=== PATIENT | female | born 1995 | race American Indian/Alaskan Native ===

== ENCOUNTER 2017-10-15 12:18 | Outpatient (CLI) | payer MEDICAID ==
[2017-10-15 12:46] VITALS: BP 131/84
[2017-10-15 13:41] LABS: Bilirubin,Urine NEG (Negative); Blood,Urine NEG (Negative); Calcium Oxalate Crystals,Urine 1+; Color,Urine Yellow (Yellow); Mucus,Urine 3+ /HPF; Protein,Urine <15 mg/dL mg/dL (Negative); Urobilinogen,Urine < 2.0 mg/dL (<2.0)
[2017-10-15 13:48] LABS: Amphetamine Screen,Urine PRESUMPTIVE NEGATIVE; Benzodiazepines Screen,Urine PRESUMPTIVE NEGATIVE; Cannabinoid Screen,Urine PRESUMPTIVE NEGATIVE; Cocaine Screen,Urine PRESUMPTIVE NEGATIVE; Methadone Screen,Urine PRESUMPTIVE NEGATIVE; Opiate Screen,Urine PRESUMPTIVE NEGATIVE
--- NOTE | 2017-10-15 16:37 | Ultrasound Report ---
FINAL REPORT EXAM: US OB > = 14 WK FETUS ADD GEST HISTORY: WELL BEING, TWIN GESTATION TECHNIQUE: Transabdominal OB ultrasound. PRIORS: None currently available. FINDINGS: Twin intrauterine pregnancies. A: A dates 24.2 weeks. DEANA equals February 02, 2018. This is 7 days older compared to the clinical age and is within normal limits. EFW equals 679 g. Percentile equals 86%. BPD: 23.6 weeks. HC: 24.2 weeks. AC: 23.6 weeks. FL: 24.6 weeks. AC/HC ratio: 1.16 Cephalic index: 82.0 mm. Presentation: Cephalic. Placenta: Fundal, right lateral. Grade 1. No previa. heart rate: 146 BPM. Amniotic fluid: Largest vertical pocket equals 3.1 cm. Cervical length measures 3.7 cm. Visualized cord plexus, cisterna magnum, cerebellum, lateral ventricle, stomach, kidneys, bladder, diaphragm, four-chamber heart, and three-vessel cord insertion appear within normal limits. B: B dates 24.2 weeks. DEANA equals February 02, 2018. This is 7 days older compared to the clinical age and is within normal limits. EFW equals 72.6 g. percentile equals 96%. BPD: 23.5 weeks. HC: 23.6 weeks. AC: 24.6 weeks. FL: 24.6 weeks. AC/HC ratio: 1.08 Cephalic index: 76.2 mm. Presentation: Cephalic. Placenta: Fundal. Grade 1. No previa. heart rate: 138 BPM. Amniotic fluid: Largest vertical pocket equals 5.6 cm. Cervical length measures 3.7 cm. Visualized cord plexus, cisterna magnum, cerebellum, lateral ventricle, stomach, kidneys, bladder, diaphragm, four-chamber heart, three-vessel cord insertion, and spine appear within normal limits. IMPRESSION: Twin live intrauterine pregnancies. Twin B demonstrates a 96 percentile for weight. Please correlate for possible. Twin a demonstrates 86 percent for weight. Shane level II finding report initiated.
== END 2017-10-15 16:00 | disposition home or self-care (01) ==
LOC: TRG 12:18
PROVIDERS: ATTEND Obstetrics & Gynecology
DX: O30.002 Twin pregnancy, unspecified number of placenta and unspecified number of amniotic sacs, second trimester (principal); O47.02 False labor before 37 completed weeks of gestation, second trimester; Z3A.23 23 weeks gestation of pregnancy
CPT/HCPCS: 59025; 76805; 76810; 80307; 81001

== ENCOUNTER 2017-11-14 13:47 | Inpatient (IN) | payer MEDICAID ==
[2017-11-14] MEDS ORDERED: APRESOLINE IV PRN (14:03)
[2017-11-14] MEDS ORDERED: LACTATED RINGERS 1,000 ML IV SCH (15:00)
[2017-11-14 15:15] LABS: Hemoglobin 12.3 gm/dl (10.1-14.3); Mean Corpuscular HGB Conc 34 % (30-34); Mean Corpuscular Hemoglobin 31 pg (28-32); Mean Corpuscular Volume 91 fl (79-97); Platelet Count 280 K/mm3 (140-440); Red Blood Count 3.97 M/mm3 (3.65-5.03); Red Cell Distribution Width 12.5 % (13.2-15.2)
[2017-11-14 15:16] LABS: Bacteria,Urine 2+ /HPF (Negative); Bilirubin,Urine NEG (Negative); Blood,Urine NEG (Negative); Color,Urine Yellow (Yellow); Mucus,Urine 2+ /HPF; Protein,Urine <15 mg/dL mg/dL (Negative); Urobilinogen,Urine < 2.0 mg/dL (<2.0)
[2017-11-14 15:18] LABS: INR 0.95 (0.87-1.13)
[2017-11-14 15:19] LABS: Partial Thromboplastin Time 27.8 Sec. (24.2-36.6)
[2017-11-14 15:30] LABS: Alanine Aminotransferase 10 units/L (7-56); Albumin 3.3 g/dL (3.9-5); BUN/Creatinine Ratio 16; Blood Urea Nitrogen 8 mg/dL (7-17); Hemolysis Index 0
--- NOTE | 2017-11-14 15:33 | History and Physical Report ---
History of Present Illness Date of examination: 11/14/17 Date of admission: 11/14/17 13:47 Chief complaint: Elevated BP in clinic History of present illness: 21yo 27 4/7wks, twin gestation, transferred from clinic for BPs 140-150/ 110s, 1+Protein. She denies headache, visual changes or RUQ pain. She has had limited care with one visit this on 10/05/18 in [place]. She was seen 10/2017 at [facility] and at US was done. Past History Past Surgical History: no surgical history Family/Genetic History: hypertension Social history: lives with family, other (Mother - lives in [place], Father - lives in [place], Grandmother - lives in [place]. FOB, 23yo not involved.) - Obstetrical History : 1 Medications and Allergies Allergies Allergy/AdvReac Type Severity Reaction Status Date / Time No Known Allergies Allergy Unverified 10/15/17 12:38 Home Medications Medication Instructions Recorded Confirmed Last Taken Type Pnv No.95/Ferrous Fum/Folic AC 1 tab PO DAILY 10/15/17 10/15/17 10/15/17 History [ Vitamins Tablet] Active Meds: Active Medications Betamethasone Acet/Betameth SodPhos (Celestone Soluspan) 12 mg IM Q24H YASMIN Stop: 11/15/17 15:01 Hydralazine HCl (Apresoline) 5 mg IV Q30MIN PRN PRN Reason: HTN SYS>160 AND/OR MAHAD>110 Lactated Ringer's (Lactated Ringers) 1,000 mls @ 125 mls/hr IV DIRECT YASMIN - Physical Exam Cardiovascular: Regular rate Lungs: Positive: Clear to auscultation - Obstetrical FHR: auscultation normal Results Result Diagrams: 11/14/17 14:34 11/14/17 14:34 Abnormal lab results 11/14/17 11/14/17 11/14/17 Range/Units 14:34 14:34 14:34 RDW 12.5 L (13.2-15.2) % Carbon Dioxide 20 L (22-30) mmol/L Creatinine 0.5 L (0.7-1.2) mg/dL Glucose 111 H (65-100) mg/dL Total Protein 6.0 L (6.3-8.2) g/dL Albumin 3.3 L (3.9-5) g/dL Urine WBC (Auto) 7.0 H (0.0-6.0) /HPF U Epithel Cells (Auto) 35.0 H (0-13.0) /HPF All other labs normal. Assessment and Plan - Patient Problems (1) 27 weeks gestation of Current Visit: Yes Status: Acute Plan to address problem: 1. 1hr OGTT - 50g load brought from clinic, plan random glucose at 1845, 1hr from drinking glucola 2. RPR, HIV drawn (2) Twin gestation in second trimester Current Visit: Yes Status: Acute Qualifiers: Multiple gestation type: unspecified Qualified Code(s): O30.002 - Twin , unspecified number of placenta and unspecified number of amniotic sacs, second trimester Plan to address problem: 1. APA consult for twin gestation, elevated BP (3) Gestational hypertension Current Visit: Yes Status: Acute Plan to address problem: 1. PIH labs 2. 24hr urine for protein/Cr clearance 3. Monitor vitals Q15min 4. Hydralizine prn 5. BPP, UA dopplers 6. APA consult (4) Obesity Current Visit: Yes Status: Acute
[2017-11-14 15:42] LABS: Bilirubin,Direct < 0.2 mg/dL (0-0.2)
[2017-11-14 17:39] LABS: Amphetamine Screen,Urine PRESUMPTIVE NEGATIVE; Benzodiazepines Screen,Urine PRESUMPTIVE NEGATIVE; Cannabinoid Screen,Urine PRESUMPTIVE NEGATIVE; Cocaine Screen,Urine PRESUMPTIVE NEGATIVE; Methadone Screen,Urine PRESUMPTIVE NEGATIVE; Opiate Screen,Urine PRESUMPTIVE NEGATIVE
--- NOTE | 2017-11-14 17:51 | Ultrasound Report ---
FINAL REPORT PROCEDURE: US OB BPP EA ADD EXAM TECHNIQUE: Sonographic evaluation for breathing, movement, tone, and amniotic fluid volume was performed. CPT 97123 HISTORY: Preeclampsia. well being. COMPARISON: Ultrasound dated 10/15/2017. FINDINGS: Twin B Clinical age given 27 weeks 4 days. Amniotic fluid volume: Normal-score 2. At least one vertical pocket > 2 cm or more in vertical axis. Deepest pocket 3.70 cm. breathing: Normal-score 2. movement: Normal-score 2. tone: Normal. Score: 8 of 8. heart rate 135 5 beats per minute. position: Breech IMPRESSION: Normal biophysical profile.
--- NOTE | 2017-11-14 20:27 | Ultrasound Report ---
FINAL REPORT PROCEDURE: US OB FOLLOW UP TECHNIQUE: Real-time transabdominal sonography of the baby a was performed with image documentation. Measurements were obtained to determine weight. M-mode Doppler was used to document heartbeat. CPT 37198 HISTORY: efw COMPARISON: No prior studies are available for comparison. FINDINGS: Twin intrauterine gestation is identified. Baby A: Heart rate and rhythm: 143 beats per minute. MEASUREMENTS: BPD: 6.9 centimeters corresponding to 27 weeks and 5 days of gestational age HC: 25.9 centimeters corresponding to 28 weeks and 1 day of gestational age AC: 23.3 centimeters corresponding to 27 weeks and 4 days of gestational age. FL: 5.3 centimeters corresponding to 28 weeks and 2 days of gestational age. Mean Gestational Age (composite criteria): 02/06/2018 HC/AC ratio: 1.11 Estimated Weight: 1144 grams +/-169 grams grams. IMPRESSION: Twin live intrauterine gestation. Twin A gestational age corresponds to 28 weeks and 0 days. Estimated due date: 02/06/2018.
--- NOTE | 2017-11-14 20:33 | Ultrasound Report ---
FINAL REPORT PROCEDURE: US OB FOLLOWUP EA ADD GESTAT TECHNIQUE: Real-time transabdominal sonography of the uterus, placenta, amniotic fluid, adnexa, and fetus was performed with image documentation. Measurements were obtained to determine age/size. M-mode Doppler was used to document heartbeat. CPT 72772 HISTORY: efw COMPARISON: FINDINGS: Twin intrauterine gestation is identified. Largest pocket of amniotic fluid is 5.2 centimeters Baby B: Heart rate and rhythm: 128 beats per minute regular MEASUREMENTS: BPD: 6.6 centimeters corresponding to 26 weeks and 3 days of gestational age. HC: 26.0 centimeters corresponding to 28 weeks and 2 days of gestational age. AC: 23.2 centimeters corresponding to 27 weeks and 4 days of gestational age. FL: 5.3 centimeters corresponding to 28 weeks and 2 days of gestational age. Mean Gestational Age (composite criteria): 27 weeks and 5 days HC/AC ratio: 1.12 Estimated Weight: 1128 grams +/-167 grams grams. IMPRESSION: Twin live intrauterine gestation. Twin B gestational age corresponds to 27 weeks and 5 days. Estimated due date: 02/08/2018.
[2017-11-14] MEDS: CELESTONE SOLUSPAN IM SCH (22:11)
--- NOTE | 2017-11-14 23:42 | Ultrasound Report ---
FINAL REPORT PROCEDURE: US OB BPP WO NON-STRESS TECHNIQUE: Real-time limited sonographic examination was performed for evaluation of size, position, heartbeat, fluid volume for each fetus with image documentation (1 or more fetuses). CPT 41877 HISTORY: TWIN GESTATION ; PER REQUEST COMPARISON: No prior studies are available for comparison. FINDINGS: Biophysical profile: breathing movements: 2. movements: 2. posterior and tone: 2. Qualitative amniotic fluid volume: 2. Total score: 8/8. heart rate 155 beats per minute. presentation: Breech. IMPRESSION: Normal biophysical profile.
--- NOTE | 2017-11-14 23:48 | Ultrasound Report ---
FINAL REPORT PROCEDURE: US OB VELOCIMETRY UMBILCAL ART TECHNIQUE: Real-time limited sonographic examination was performed for evaluation of size, position, heartbeat, fluid volume for each fetus with image documentation (1 or more fetuses). CPT 81304 HISTORY: well being, chorionicity, BPP COMPARISON: No prior studies are available for comparison. FINDINGS: Umbilical cord SD ratio: 3.8. There is a persistent waveform. Resistive index is 0.7. IMPRESSION: Umbilical cord SD ratio: 3.8.
--- NOTE | 2017-11-14 23:48 | Ultrasound Report ---
FINAL REPORT PROCEDURE: US OB VELOCIMETRY UMBILCAL ART TECHNIQUE: Real-time limited sonographic examination was performed for evaluation of size, position, heartbeat, fluid volume for each fetus with image documentation (1 or more fetuses). CPT 87822 HISTORY: well being, chorionicity, BPP COMPARISON: No prior studies are available for comparison. FINDINGS: Umbilical cord SD ratio: 3.8. There is a persistent waveform. Resistive index is 0.7. IMPRESSION: Umbilical cord SD ratio: 3.8.
[2017-11-15] MEDS ORDERED: AMBIEN PO PRN (01:16)
--- NOTE | 2017-11-15 09:22 | Consultation ---
History of Present Illness Consult date: 11/15/17 Requesting physician: YA WAKEFIELD History of present illness: 21yo 27 5/7wks, DEANA 02/09/18 twin gestation, transferred from OB clinic for BPs 140-150/110s, 1+Protein. No Care due to Insurance but now has Insurance Denies CHARLES's [place] or RUQ Pain Denies H/O CHTN Seen Early in Preg in [facility] and [facility] Twins noted with DEANA of 02/09/18 BP's in L&D WNL highest 147/65 most 120-130/70's last 2 BP/s 130/84 and 99/60 PIH Labs Plts and Liver Functions WNL's UA Prot - < 15 and 24 Hour Urine Prot Pending this afternoon took 1 Hour GTT today prior to steroids for FLM BPP 8/8 on Both Twin A and B EFW's A 1144 grams 51% and B 1128 grams 46% EFM Twins A&B 120' 130's categ I No Med ds Denies Surg, C/D/D, STD, NKA no issue Abd - Obese NT No rebound no gaurding No RUQ Pain Ext - Tr edema DTR's no clonus Past History Past Surgical History: no surgical history Family/Genetic History: hypertension - Obstetrical History : 1 Medications and Allergies Allergies Allergy/AdvReac Type Severity Reaction Status Date / Time No Known Allergies Allergy Unverified 10/15/17 12:38 Home Medications Medication Instructions Recorded Confirmed Last Taken Type Pnv No.95/Ferrous Fum/Folic AC 1 tab PO DAILY 10/15/17 10/15/17 10/15/17 History [ Vitamins Tablet] Active Meds: Active Medications Betamethasone Acet/Betameth SodPhos (Celestone Soluspan) 12 mg IM Q24H YASMIN Stop: 11/15/17 15:01 Last Admin: 11/14/17 22:11 Dose: 12 mg Hydralazine HCl (Apresoline) 5 mg IV Q30MIN PRN PRN Reason: HTN SYS>160 AND/OR MAHAD>110 Lactated Ringer's (Lactated Ringers) 1,000 mls @ 125 mls/hr IV DIRECT YASMIN Zolpidem Tartrate (Ambien) 5 mg PO QHS PRN PRN Reason: Sleep - Vital Signs Vital signs: Vital Signs Temp Pulse Resp BP 98.1 F 93 H 16 124/80 11/14/17 14:35 11/14/17 14:35 11/14/17 14:35 11/14/17 14:35 Temp Pulse Resp BP Pulse Ox 98.1 F 83 16 99/60 11/14/17 14:35 11/14/17 18:12 11/14/17 15:00 11/14/17 18:12 Results Result Diagrams: 11/14/17 14:34 11/14/17 19:39 Abnormal lab results 11/14/17 11/14/17 11/14/17 Range/Units 14:34 14:34 14:34 RDW 12.5 L (13.2-15.2) % Carbon Dioxide 20 L (22-30) mmol/L Creatinine 0.5 L (0.7-1.2) mg/dL Glucose 111 H (65-100) mg/dL Total Protein 6.0 L (6.3-8.2) g/dL Albumin 3.3 L (3.9-5) g/dL Urine WBC (Auto) 7.0 H (0.0-6.0) /HPF U Epithel Cells (Auto) 35.0 H (0-13.0) /HPF Urine Creatinine (0.1-20.0) mg/dL Urine Total Protein (5-11.8) mg/dL 11/14/17 11/14/17 Range/Units 14:34 15:27 RDW (13.2-15.2) % Carbon Dioxide (22-30) mmol/L Creatinine (0.7-1.2) mg/dL Glucose (65-100) mg/dL Total Protein (6.3-8.2) g/dL Albumin (3.9-5) g/dL Urine WBC (Auto) (0.0-6.0) /HPF U Epithel Cells (Auto) (0-13.0) /HPF Urine Creatinine 155.2 H (0.1-20.0) mg/dL Urine Total Protein 34 H (5-11.8) mg/dL All other labs normal. Assessment and Plan 1. Twin IUP at 27 5/7 weeks 2. R/O Gest HTN - BP's now WNL's 3. Limited Care 4. Obesity Recommendations: 1. If BP's remain stable would allow discharge home with close OB and APA FU 2. Follow up with APA within one week 3. Confirm normal 1 Hour GTT 4. Call or go to Hosp for S/S of PIH or DFM's 5. Take BP's Twice Per week - Use large cuff 6. Obtain all labs (limited care)
--- NOTE | 2017-11-15 14:31 | Progress Note ---
Assessment and Plan - Patient Problems (1) 27 weeks gestation of Current Visit: Yes Status: Acute Plan to address problem: Stable. Plan discharge after second betamethasone. (2) Twin gestation in second trimester Current Visit: Yes Status: Acute Qualifiers: Multiple gestation type: unspecified Qualified Code(s): O30.002 - Twin , unspecified number of placenta and unspecified number of amniotic sacs, second trimester (3) Gestational hypertension Current Visit: Yes Status: Acute Plan to address problem: 1. BP's since admission - normotensive. 2. F/u in clinic 1 week for BP check 3, PIH to date negative. (4) Obesity Current Visit: Yes Status: Acute Subjective - Subjective Date of service: 11/15/17 Interval history: 21yo 27 4/7wks, twin gestation, transferred from clinic for BPs 140-150/ 110s, 1+Protein. She denies headache, visual changes or RUQ pain. She has had limited care with one visit this on 10/05/18 in [place]. She was seen 10/2017 at [facility] and at US was done. Patient reports: new complaints (Reports good movement of both twins) Objective - Vital Signs Vital Signs: Vital Signs - 12hr 11/15/17 09:41 Temperature 97.6 F Pulse Rate 104 H Blood Pressure 139/86 [Right] - Exam Uterus: Present: normal, fundal height above umbilicus FHR comments: NST reviewed Extremities: normal - Labs Labs: Abnormal Labs 11/14/17 11/14/17 11/14/17 14:34 14:34 14:34 RDW 12.5 L Carbon Dioxide 20 L Creatinine 0.5 L Glucose 111 H Total Protein 6.0 L Albumin 3.3 L Urine WBC (Auto) 7.0 H U Epithel Cells (Auto) 35.0 H Urine Creatinine Urine Total Protein 11/14/17 11/14/17 14:34 15:27 RDW Carbon Dioxide Creatinine Glucose Total Protein Albumin Urine WBC (Auto) U Epithel Cells (Auto) Urine Creatinine 155.2 H Urine Total Protein 34 H Laboratory Results - last 24 hr 11/14/17 11/14/17 11/14/17 14:34 14:34 14:34 WBC 7.9 RBC 3.97 Hgb 12.3 Hct 36.0 MCV 91 MCH 31 MCHC 34 RDW 12.5 L Plt Count 280 PT 13.2 INR 0.95 APTT 27.8 Sodium 137 Potassium 4.0 Chloride 102.2 Carbon Dioxide 20 L Anion Gap 19 BUN 8 Creatinine 0.5 L Estimated GFR > 60 BUN/Creatinine Ratio 16 Glucose 111 H Hemoglobin A1c Uric Acid Calcium 9.0 Total Bilirubin 0.50 Direct Bilirubin < 0.2 Indirect Bilirubin 0.3 AST 13 ALT 10 Alkaline Phosphatase 121 Total Protein 6.0 L Albumin 3.3 L Albumin/Globulin Ratio 1.2 Urine Color Urine Turbidity Urine pH Ur Specific [place] Urine Protein Urine Glucose (UA) Urine Ketones Urine Blood Urine Nitrite Urine Bilirubin Urine Urobilinogen Ur Leukocyte Esterase Urine WBC (Auto) Urine RBC (Auto) U Epithel Cells (Auto) Urine Bacteria (Auto) Urine Mucus Urine Creatinine Urine Total Protein Urine Opiates Screen Urine Methadone Screen Ur Barbiturates Screen Ur Phencyclidine Scrn Ur Amphetamines Screen U Benzodiazepines Scrn Urine Cocaine Screen U Marijuana (THC) Screen Drugs of Abuse Note Blood Type Antibody Screen 11/14/17 11/14/17 11/14/17 14:34 14:34 14:34 WBC RBC Hgb Hct MCV MCH MCHC RDW Plt Count PT INR APTT Sodium Potassium Chloride Carbon Dioxide Anion Gap BUN Creatinine Estimated GFR BUN/Creatinine Ratio Glucose Hemoglobin A1c Uric Acid 5.8 Calcium Total Bilirubin Direct Bilirubin Indirect Bilirubin AST ALT Alkaline Phosphatase Total Protein Albumin Albumin/Globulin Ratio Urine Color Yellow Urine Turbidity Clear Urine pH 6.0 Ur Specific [place] 1.020 Urine Protein <15 mg/dl Urine Glucose (UA) Neg Urine Ketones 20 Urine Blood Neg Urine Nitrite Neg Urine Bilirubin Neg Urine Urobilinogen < 2.0 Ur Leukocyte Esterase Sm Urine WBC (Auto) 7.0 H Urine RBC (Auto) 3.0 U Epithel Cells (Auto) 35.0 H Urine Bacteria (Auto) 2+ Urine Mucus 2+ Urine Creatinine Urine Total Protein 34 H Urine Opiates Screen Urine Methadone Screen Ur Barbiturates Screen Ur Phencyclidine Scrn Ur Amphetamines Screen U Benzodiazepines Scrn Urine Cocaine Screen U Marijuana (THC) Screen Drugs of Abuse Note Blood Type Antibody Screen 11/14/17 11/14/17 11/14/17 14:57 15:27 17:18 WBC RBC Hgb Hct MCV MCH MCHC RDW Plt Count PT INR APTT Sodium Potassium Chloride Carbon Dioxide Anion Gap BUN Creatinine Estimated GFR BUN/Creatinine Ratio Glucose Hemoglobin A1c Uric Acid Calcium Total Bilirubin Direct Bilirubin Indirect Bilirubin AST ALT Alkaline Phosphatase Total Protein Albumin Albumin/Globulin Ratio Urine Color Urine Turbidity Urine pH Ur Specific [place] Urine Protein Urine Glucose (UA) Urine Ketones Urine Blood Urine Nitrite Urine Bilirubin Urine Urobilinogen Ur Leukocyte Esterase Urine WBC (Auto) Urine RBC (Auto) U Epithel Cells (Auto) Urine Bacteria (Auto) Urine Mucus Urine Creatinine 155.2 H Urine Total Protein Urine Opiates Screen Presumptive negative Urine Methadone Screen Presumptive negative Ur Barbiturates Screen Presumptive negative Ur Phencyclidine Scrn Presumptive negative Ur Amphetamines Screen Presumptive negative U Benzodiazepines Scrn Presumptive negative Urine Cocaine Screen Presumptive negative U Marijuana (THC) Screen Presumptive negative Drugs of Abuse Note Disclamer Blood Type B POSITIVE Antibody Screen Negative 11/14/17 11/14/17 19:39 19:39 WBC RBC Hgb Hct MCV MCH MCHC RDW Plt Count PT INR APTT Sodium Potassium Chloride Carbon Dioxide Anion Gap BUN Creatinine Estimated GFR BUN/Creatinine Ratio Glucose 94 Hemoglobin A1c 5.5 Uric Acid Calcium Total Bilirubin Direct Bilirubin Indirect Bilirubin AST ALT Alkaline Phosphatase Total Protein Albumin Albumin/Globulin Ratio Urine Color Urine Turbidity Urine pH Ur Specific [place] Urine Protein Urine Glucose (UA) Urine Ketones Urine Blood Urine Nitrite Urine Bilirubin Urine Urobilinogen Ur Leukocyte Esterase Urine WBC (Auto) Urine RBC (Auto) U Epithel Cells (Auto) Urine Bacteria (Auto) Urine Mucus Urine Creatinine Urine Total Protein Urine Opiates Screen Urine Methadone Screen Ur Barbiturates Screen Ur Phencyclidine Scrn Ur Amphetamines Screen U Benzodiazepines Scrn Urine Cocaine Screen U Marijuana (THC) Screen Drugs of Abuse Note Blood Type Antibody Screen
--- NOTE | 2017-11-15 14:48 | Discharge Summary ---
Providers - Providers Date of Admission: 11/14/17 13:47 Date of discharge: 11/15/17 Attending physician: YA WAKEFIELD MD Maternal Medicine Primary care physician: YA WAKEFIELD MD Hospitalization Reason for admission: observation Discharge diagnosis: other (Twin gestation, obesity) Condition at discharge: Stable Disposition: [id number] TO HOME OR SELFCARE - Discharge Diagnoses (1) 27 weeks gestation of Status: Acute Comment: No signs of labor. Preeclampsia precuations given. (2) Twin gestation in second trimester Status: Acute Qualifiers: Multiple gestation type: unspecified Qualified Code(s): O30.002 - Twin , unspecified number of placenta and unspecified number of amniotic sacs, second trimester Comment: BPP 8/8 Twin A BPP 8/8 Twin B (3) Gestational hypertension Status: Acute Comment: Labs wnl. No signs/symptoms of preeclampsia. (4) Obesity Status: Acute Comment: Discussed diet modifications. Plan - Provider Discharge Summary Diet: other (5 servings fruits/veg per day, lean meats) Instructions: other (Headaches, visual changes, RUQ pain go to ER, call MD.) Additional instructions: [] Smoking cessation referral if applicable(refer to patient education folder for contact #) [] Refer to [facility]'s [facility] Booklet Call your doctor immediately for: * Fever > 100.5 * Heavy vaginal bleeding ( >1 pad per hour) * Severe persistent headache * Shortness of breath * Reddened, hot, painful area to leg or breast * Drainage or odor from incision. * Keep incision clean and dry at all times and follow doctor's instructions regarding bathing/showering - Follow up plan Follow up: YA WAKEFIELD MD [Primary Care Provider] - 3 Days
[2017-11-15 20:19] VITALS: BP 122/59
[2017-11-15 21:05] LABS: Creatinine,Urine 95.9 mg/dL (0.1-20.0)
[2017-11-15] MEDS: CELESTONE SOLUSPAN IM SCH (21:42)
== END 2017-11-15 21:45 | disposition home or self-care (01) | DRG 782 ==
LOC: LD 13:47
PROVIDERS: ADMIT Obstetrics & Gynecology; ATTEND Obstetrics & Gynecology
DX: O30.002 Twin pregnancy, unspecified number of placenta and unspecified number of amniotic sacs, second trimester (principal); Z3A.27 27 weeks gestation of pregnancy; O13.2 Gestational [pregnancy-induced] hypertension without significant proteinuria, second trimester; E66.01 Morbid (severe) obesity due to excess calories; Z71.3 Dietary counseling and surveillance; Z82.49 Family history of ischemic heart disease and other diseases of the circulatory system; O99.212 Obesity complicating pregnancy, second trimester; Z68.41 Body mass index [BMI] 40.0-44.9, adult
CPT/HCPCS: 36415; 76816; 76819; 76820; 80048; 80074; 80307; 81001; 82565; 82570; 82575; 82947; 83036; 84156; 84550; 85027; 85610; 85730; 86592; 86850; 86900; 86901; 96372; J0702

== ENCOUNTER 2018-01-02 12:45 | Inpatient (IN) | payer MEDICAID ==
[2018-01-02] MEDS ORDERED: LACTATED RINGERS 1,000 ML ONE ×2 (13:20→13:49)
[2018-01-02] MEDS ORDERED: PITOCin/NS 20 UNIT/1000ML DRIP 20,000 MILLIUNITS/1,000 ML BAG IV ONE (13:48)
[2018-01-02] MEDS ORDERED: REGLAN ONE (13:48)
[2018-01-02] MEDS ORDERED: ANCEF/STERILE WATER 2 GM/20 ML 2 GM/20 ML SYRINGE IV ONE (13:49)
[2018-01-02] MEDS ORDERED: BICITRA ONE (13:49)
[2018-01-02] MEDS ORDERED: PEPCID IV ONE ×2 (13:49→14:09)
--- NOTE | 2018-01-02 13:50 | History and Physical Report ---
History of Present Illness Date of examination: 01/02/18 Date of admission: 01/02/18 12:51 Chief complaint: Twins gestation at 34 weeks 4 days with baby B demised. History of present illness: Patient is a 22 year old , LMP 05/05/17, EDC 02/09/18 who is at 34 weeks and 4 days with dichorionic diamniotic gestation who was sent from [facility] for admission secondary to demise in baby B. She is a [facility] patient being co-managed with [facility]. She was a late registrant to [facility] at 27+ weeks. She was diagnosed with gestational HTN and has been on labetolol. Toxemia labs have been normal during the . Today, she went for a routine visit for NST/ BPP at [facility] and baby B was found to be demised. Patient was sent to the labor floor where repeat sonogram confirmed demise in baby B. Baby A is alive with FH at 143 bpm with CAT1 tracing. Cervix: closed/long/post. Past History Past Surgical History: no surgical history - Obstetrical History Expected Date of Delivery: 02/09/18 Actual Gestation: 34 Week(s) 4 Day(s) : 1 Medications and Allergies Allergies Allergy/AdvReac Type Severity Reaction Status Date / Time No Known Allergies Allergy Unverified 10/15/17 12:38 Home Medications Medication Instructions Recorded Confirmed Last Taken Type Pnv No.95/Ferrous Fum/Folic AC 1 tab PO DAILY 10/15/17 10/15/17 10/15/17 History [ Vitamins Tablet] - Vital Signs Vital signs: Vital Signs Pulse BP 93 H 124/80 11/14/17 14:35 11/14/17 14:35 Temp Pulse Resp BP Pulse Ox 111 H 134/75 99 11/15/17 19:31 11/15/17 19:31 11/15/17 05:57 - Physical Exam Cardiovascular: Normal S1, Normal S2 Lungs: Positive: Clear to auscultation Vulva: both: normal Deep Tendon Reflex Grade: Normal +2 - Obstetrical FHR: category 1 Results Result Diagrams: 01/02/18 15:15 01/02/18 15:15 All other labs normal. Assessment and Plan - Patient Problems (1) 34 weeks gestation of Current Visit: Yes Status: Acute (2) Dichorionic diamniotic twin gestation Current Visit: Yes Status: Acute (3) demise Current Visit: Yes Status: Acute Plan to address problem: Baby A is alive and breech. Baby B is demised and transverse (LOT). I discussed these findings with the patient and her mother. I told her that patient needs to be delivered via C/section due to baby A's malpresentation. I told them that the cause of the demise in twin B is still unknown at this time but cord accident, chromosomal anomaly, placental abruption from HTN, infection are common causes. Pt is NPO. Routine admitting labs, TORCH labs and Khlauer Betke ordered. IV hydration. Anesthesia notified. Risks and benefits of the procedure were discussed in detail with the patient such as infection, hemorrhage requiring blood transfusion, injury to the bowel, bladder and blood vessels. The patient expressed understanding, her questions were answered, she gave her informed consent. (4) Hypertension affecting in third trimester Current Visit: Yes Status: Acute Plan to address problem: Toxemia labs ordered. Continue BP monitoring. (5) Obesity Current Visit: Yes Status: Acute Qualifiers: Obesity type: due to excess calories (6) Late care Current Visit: Yes Status: Acute
[2018-01-02] MEDS ORDERED: BICITRA PO ONE (14:09)
[2018-01-02] MEDS ORDERED: REGLAN IV ONE (14:09)
--- NOTE | 2018-01-02 14:27 | Ultrasound Report ---
ULTRASOUND OB LIMITED History: Twin, demise Technique: Transabdominal ultrasound with Doppler interrogation. Gestation: Baby A Position: Breech Heart Rate: 143 BPM Gestation: Baby B Position: Transverse with head to the maternal left Heart Rate: 0 BPM
--- NOTE | 2018-01-02 14:49 | Anesthesia Consultation ---
Anesthesia Consult and Med Hx Date of service: 01/02/18 - Airway Anesthetic Teeth Evaluation: Good ROM Head & Neck: Adequate Mental/Hyoid Distance: Adequate Mallampati Class: Class III Intubation Access Assessment: Possibly Difficult - Pre-Operative Health Status ASA Pre-Surgery Classification: ASA3 Proposed Anesthetic Plan: Epidural, Spinal - Pulmonary Hx Asthma: Yes (Bronchitis) COPD: No Hx Pneumonia: No - Cardiovascular System Hx Hypertension: No - Central Nervous System Hx Seizures: No Hx Psychiatric Problems: No - Endocrine Hx Renal Disease: No Hx End Stage Renal Disease: No Hx Hypothyroidism: No Hx Hyperthyroidism: No - Hematic Hx Anemia: No Hx Sickle Cell Disease: No - Other Systems Hx Alcohol Use: Yes Hx Obesity: Yes (BMI 45.7)
--- NOTE | 2018-01-02 14:53 | Anesthesia Day of Surgery ---
Anesthesia Day of Surgery - Day of Surgery Patient Examined: Yes Patient H&P Reviewed: Yes Patient is NPO: Yes
[2018-01-02] MEDS ORDERED: DILAUDID IV PRN (14:55)
[2018-01-02] MEDS ORDERED: TORADOL IV PRN ×3 (14:55→18:06)
[2018-01-02] MEDS ORDERED: PHENERGAN PR PRN (14:55)
[2018-01-02] MEDS ORDERED: ZOFRAN IV PRN ×2 (14:55→18:06)
[2018-01-02] MEDS ORDERED: NARCAN 0.4 MG/1 ML IV PRN ×2 (14:55→18:06)
[2018-01-02] MEDS ORDERED: PHENERGAN PO PRN (14:55)
[2018-01-02] MEDS ORDERED: ANCEF/STERILE WATER 2 GM/20 ML 2 GM/20 ML SYRINGE IV NR (15:00)
[2018-01-02] MEDS ORDERED: SODIUM CHLORIDE FLUSH SYRINGE 10 ML IV NR ×2 (15:00→19:00)
[2018-01-02 15:44] LABS: Basophils % (Auto) 0.5 % (0.0-1.8); Eosinophils % (Auto) 0.4 % (0.0-4.3); Hematocrit 38.4 % (30.3-42.9); Hemoglobin 12.8 gm/dl (10.1-14.3); Lymphocytes # (Auto) 2.1 K/mm3 (1.2-5.4); Lymphocytes % (Auto) 30.5 % (13.4-35.0); Mean Corpuscular HGB Conc 33 % (30-34); Mean Corpuscular Hemoglobin 30 pg (28-32); Mean Corpuscular Volume 91 fl (79-97); Monocytes # (Auto) 0.6 K/mm3 (0.0-0.8); Platelet Count 254 K/mm3 (140-440); Red Blood Count 4.21 M/mm3 (3.65-5.03); Red Cell Distribution Width 12.8 % (13.2-15.2)
[2018-01-02 16:05] LABS: Alanine Aminotransferase 9 units/L (7-56); Uric Acid 5.7 mg/dL (3.5-7.6)
[2018-01-02] MEDS ORDERED: NACL 0.9% IR ONE (16:10)
[2018-01-02] MEDS ORDERED: WATER FOR IRRIG STERILE IR ONE (16:10)
[2018-01-02] MEDS ORDERED: ANCEF/STERILE WATER 2 GM/20 ML IV ONE (16:38)
[2018-01-02] MEDS ORDERED: NEO SYNEPHRINE/NS Syringe(OR USE) IV ONE (17:00)
[2018-01-02] MEDS ORDERED: VERSED ONE (17:06)
[2018-01-02] MEDS ORDERED: MORPHINE ONE (17:44)
[2018-01-02] MEDS ORDERED: MORPHINE IV PRN (18:06)
[2018-01-02] MEDS ORDERED: TUCKS PAD TP PRN (18:06)
[2018-01-02] MEDS ORDERED: SENOKOT PO PRN (18:06)
[2018-01-02] MEDS ORDERED: MILK OF MAGNESIA PO PRN (18:06)
[2018-01-02] MEDS ORDERED: MYLICON PO PRN (18:06)
[2018-01-02] MEDS ORDERED: LANSINOH TP PRN (18:06)
[2018-01-02] MEDS ORDERED: PERCOCET 5/325 PO PRN (18:06)
--- NOTE | 2018-01-02 18:46 | Operative Report ---
Operative Report Operative Report: Preoperative diagnosis: 1. Twin gestation at 34 weeks and 4 days not in labor. 2. Dichorionic Diamniotic twins. 3. malpresentation (breech) in twin A. 4. demise in twin B. 5. Twin B IUGR and oligohydramnios. 6. Gestational HTN. 7. Morbid obesity. Preoperative diagnosis: 1. Same as preoperative diagnosis. 2. Meconium amniotic fluid in twin B. Procedure: Primary low-transverse section. Surgeon: Dr. Stein Claims Manager: none Anesthesia: spinal EBL: 700 cc IVF: 1700 cc of RL Urine: 50 cc clear Complications: none Intraoperative findings: 1. Baby A is a male, found in the sharath breech presentation, delivered at 5:02 PM, Apgars 8 at 1 minute and 9 at 5 minutes, weight 4 lbs. 14 oz. 2. Baby B is a female, found in a transverse (LOT) lie, scant amount of thick meconium amniotic fluid, delivered at 5:04 PM, weight 3 lbs. 10 oz., Apgars 0 at 1 minutes and 0 at 5 minutes. 3. Normal fallopian tubes and ovaries bilaterally. Procedure details: Risks, benefits, and alternatives of the procedure were discussed in detail with the patient which included but not limited to the risks of infection, hemorrhage requiring blood transfusion, injury to the bowel bladder and blood vessels. The patient expressed understanding, her questions were answered, and she gave informed consent. The patient was taken to the operating room with an IV fluids infusing Ringer's lactate. In the operating room, she was placed in the sitting position and given spinal anesthesia. She was then placed in the dorsal supine position with a leftward tilt. Venodyne boots and Deleon catheter were placed. The abdomen was washed and she was prepared and draped in usual sterile fashion. After confirming adequate spinal anesthesia, a Pfannenstiel skin incision was made in the lower abdomen at about 2 cm above the pubic symphysis using the scalpel. This incision was carried down to the underlying fascia using the Bovie. The fascia was opened bilaterally in a curvilinear fashion using the Bovie. Two straight Kocker clamps were used to grasp the upper edge of the fascia from the underlying rectus abdominis muscle was dissected off using the Bovie. A similar procedure was done with the lower edge of the fascia to dissect the underlying rectus abdominis muscle. The muscle was bluntly from the midline by pulling. The parietal peritoneum was grasped with 2 hemostat clamps and entered sharply using Metzenbaum scissors. A quick survey of the anatomy revealed a gravid uterus, normal fallopian tubes and ovaries bilaterally. A bladder flap was created. Laron'O retractor was placed in the incision for proper visualization. A low transverse incision was made in the lower uterine segment using the scalpel and extended bilaterally in a curvilinear fashion using bandage scissors. Baby A's amniotic sac was ruptured and there was copious amount of clear amniotic fluids. This infant was found in the sharath breech presentation. He was delivered from that position up to the thorax, the anterior shoulder was delivered, the posterior shoulder was brought to an anterior position by rotating the baby's body to 180 and it was delivered atraumatically, the head was flexed and delivered at 5: 02 PM. Bulb suction of the mouth and nose was performed. The cord was clamped 2 and cut and the infant was handed off to the waiting grade checker. The infant is a male, Apgars were 8 at 1 minutes and 9 at 5 minutes, weight 4 lbs. 14 oz. Baby B was found in an LOT position. There was almost no amniotic fluid in the sac. The infant was turned to a vertex presentation while inside of the membranes and was delivered at 5:04 PM. The membranes were ruptured and there was a very scant amount of thick meconium amniotic fluid. The cord was clamped 2 and cut and the was handed off to the waiting grade checker. This is a female, Apgars were 0 at 1 minutes and 0 at 5 minutes, weight was 3 pounds and 10 ounces. Baby B's head, face, body and extremities appeared intact, no skin peeling, no luke sign. The placental discs were fused together, they were delivered manually and they were complete with a three- vessel cord in each. The uterine cavity was cleaned of clots and debris using dry lap sponges. The uterine incision was closed in a running locked fashion using 0 Vicryl sutures. A second layer of imbrication was placed. The gutters were cleaned of clots and debris using dry lap sponges. The fascia was closed in a running fashion using 0 Vicryl sutures. The subcutaneous adipose tissue was closed with 2.0 chromic sutures. The skin was closed with talia. Sterile dressing was placed. The count of laps, needles, sponges, and instruments were correct 2. The patient tolerated the procedure well. She was taken to the recovery room in a stable condition.
[2018-01-02] MEDS ORDERED: PITOCin/NS 20 UNIT/1000ML DRIP 20 UNITS/1,000 ML BAG IV SCH (19:00)
[2018-01-02] MEDS: NORMODYNE PO SCH (20:05)
[2018-01-02] MEDS: LACTATED RINGERS 1,000 ML IV SCH (20:08)
[2018-01-02] MEDS ORDERED: NORMODYNE PO SCH (22:00)
[2018-01-02] MEDS: BENADRYL IV PRN (22:17)
[2018-01-03] MEDS: LACTATED RINGERS 1,000 ML IV SCH (03:19)
[2018-01-03] MEDS: BENADRYL IV PRN (04:52)
[2018-01-03 07:51] LABS: Hemoglobin 10.9 gm/dl (10.1-14.3)
[2018-01-03] MEDS: MOTRIN PO PRN ×2 (13:00→19:10)
[2018-01-03] MEDS: FEOSOL PO SCH (13:40)
[2018-01-03] MEDS: NORMODYNE PO SCH (13:40)
[2018-01-04] MEDS: NORMODYNE PO SCH ×2 (00:40→12:55)
[2018-01-04] MEDS: MOTRIN PO PRN ×2 (04:12→12:55)
[2018-01-04] MEDS ORDERED: BOOSTRIX IM ONE (06:00)
--- NOTE | 2018-01-04 07:26 | Progress Note ---
Assessment and Plan - Patient Problems (1) 34 weeks gestation of Current Visit: Yes Status: Acute (2) Dichorionic diamniotic twin gestation Current Visit: Yes Status: Acute (3) demise Current Visit: Yes Status: Acute (4) Hypertension affecting in third trimester Current Visit: Yes Status: Acute Plan to address problem: Continue BP monitoring. Continue labetolol. If BP becomes elevated, will start magnesium sulfate. (5) Obesity Current Visit: Yes Status: Acute Qualifiers: Obesity type: due to excess calories (6) Late care Current Visit: Yes Status: Acute (7) delivery delivered Current Visit: Yes Status: Acute Plan to address problem: Continue routine postop care. OOB to ambulate. Subjective - Subjective Date of service: 01/03/18 Principal diagnosis: S/P C/section for tiwn B demise Interval history: This is a late entry note for 01/03/18. Patient is a 22 year old , who is S/P C/section, POD#1 for demise of twin B and baby A was breech. She was admitted at 34 weeks and 4 days with dichorionic diamniotic gestation after sonogram at [facility] revealed demise of twin B. She is a [facility] patient and has been co-managed with [facility]. She was a late registrant to [facility] at 27+ weeks. She was diagnosed with gestational HTN and has been on labetolol. Toxemia labs were normal. Her BP has been stable since delivery. She is passing gas and tolerating regular diet well. She has ambulated without any difficulty. Objective - Vital Signs Latest vital signs: Vital Signs Temp Pulse Resp BP BP Pulse Ox 01/04/18 00:30 98.5 F 94 H 18 127/73 99 01/03/18 16:11 97.9 F 01/03/18 15:06 92 H 18 114/71 99 01/03/18 08:40 97.7 F 86 18 119/77 86 01/03/18 08:03 20 119/77 Intake and Output 01/03/18 01/03/18 01/04/18 15:59 23:59 07:59 Intake Total 240 Output Total 800 400 Balance -800 -400 240 Intake: Intake, Free Water 240 Output: Urine 800 400 Indwelling Catheter 800 400 Other: Total, Output Amount 800 400 # Voids Indwelling Catheter 6 - Exam Cardiovascular: Present: Normal S1, Normal S2 Lungs: Present: Clear to auscultation Vulva: both: normal Deep Tendon Reflex Grade: Normal +2
--- NOTE | 2018-01-04 10:33 | Progress Note ---
Assessment and Plan A: POD #2 stable P: Continue post op care Plan discharge in am Subjective - Subjective Date of service: 01/04/18 Principal diagnosis: S/P C/section for tiwn B demise Patient reports: appetite normal [place]: in NICU Objective - Vital Signs Latest vital signs: Vital Signs Temp Pulse Resp BP BP Pulse Ox 01/04/18 00:30 98.5 F 94 H 18 127/73 99 01/03/18 16:11 97.9 F 01/03/18 15:06 92 H 18 114/71 99 Intake and Output 01/03/18 01/04/18 01/04/18 22:59 06:59 14:59 Intake Total 240 Output Total 400 Balance -400 240 Intake: Intake, Free Water 240 Output: Urine 400 Indwelling Catheter 400 Other: Total, Output Amount 400 # Voids Indwelling Catheter 6 - Exam Breasts: Present: deferred, Cardiovascular: Present: Regular rate Lungs: Present: Clear to auscultation Uterus: Present: fundal height below umbilicus Deep Tendon Reflex Grade: Normal +2 Incision: Present: intact
[2018-01-04] MEDS: PRENATAL VITAMIN PO SCH (12:55)
[2018-01-04] MEDS: FEOSOL PO SCH (12:55)
[2018-01-05] MEDS: FEOSOL PO SCH (10:41)
[2018-01-05] MEDS: PRENATAL VITAMIN PO SCH (10:41)
[2018-01-05] MEDS: NORMODYNE PO SCH (10:42)
--- NOTE | 2018-01-05 17:02 | Progress Note ---
Assessment and Plan A: /postop day 3. Anemia. P: Plan to discharge patient home this afternoon. Discussed discharge instructions and warning signs. Discussed with patient need to avoid IC for 8 weeks, activity restrictions, and care of incision. Discussed grief counseling and patient has been provided with information to set this up. Discussed need to RTO within 1 week for incision check and BP check. Warning signs for depression, BP warning signs, and general warning signs were discussed with patient. Continue PNV and iron supplements. Follow up with [facility] in 1 week. Subjective - Subjective Date of service: 01/05/18 Principal diagnosis: S/P C/section for tiwn B demise; /postop day 3 Interval history: /postop day 3 S/P section. Patient is doing well. Patient reports a small amount of lochia. Patient is ambulating well. She is voiding without difficulty and tolerating a regular diet. Patient denies headache, visual disturbance, nausea or vomiting, chest pain, cough, shortness of breath, abdominal pain, leg pain, heavy vaginal bleeding or symptoms of depression. Patient has not decided what she wants to use for contraception. Baby is in NICU. 2nd twin had demise prior to . Patient reports: appetite normal, voiding normally, pain well controlled, flatus , bowel movement, ambulating normally [place]: doing well, in NICU Objective - Vital Signs Latest vital signs: Vital Signs Temp Pulse Resp BP BP Pulse Ox 01/05/18 10:42 90 128/80 01/05/18 08:03 98.3 F 90 14 128/80 99 01/05/18 00:17 98.3 F 90 20 125/67 Intake and Output 01/05/18 01/05/18 01/05/18 07:59 15:59 23:59 Other: # Voids Void 1 - Exam Breasts: Present: deferred Cardiovascular: Present: Regular rate, Normal S1, Normal S2, No murmurs Lungs: Present: Clear to auscultation Abdomen: Present: normal appearance, soft, normal bowel sounds. Absent: distention, tenderness, guarding, rigidity Uterus: Present: normal, firm, fundal height below umbilicus. Absent: bogginess , tenderness Extremities: Present: normal. Absent: tenderness, edema Incision: Present: normal, dry, intact, dressed
[2018-01-05 17:09] VITALS: BP 121/69
--- NOTE | 2018-01-05 17:41 | Discharge Summary ---
Providers - Providers Date of Admission: 01/02/18 12:51 Date of discharge: 01/05/18 Attending physician: YA WAKEFIELD MD 01/04/18 15:03 Consult to Case Management [CONS] Urgent Services Needed at Discharge: [facility] Notified:: yes Phone number called:: [phone] Was contact made?: Yes If yes, spoke with:: Julissa Time called:: 15:04 Additional Physician Instructions: Twin at 34 weeks. IUFD on one of the babies. Mother requesting out of state disposition for infant. Primary care physician: YA WAKEFIELD MD Hospitalization Reason for admission: section Delivery: Procedure: primary low transverse Incision: normal, dry, intact Other procedures: none complications: none Discharge diagnosis: delivery [place] baby: twins (one twin demised prior to ) Hospital course: Normal hospital course. Condition at discharge: Good Disposition: DC-01 TO HOME OR SELFCARE - Discharge Diagnoses (1) delivery Status: Acute Plan - Provider Discharge Summary Activity: no sex for 6 weeks, no heavy lifting 4 weeks, no strenuous exercise Diet: routine Instructions: routine Additional instructions: Continue taking your blood pressure medication as directed at home. Continue taking your vitamins and iron at home (Rx called to [facility] pharmacy on ). Follow up with Dr. Wakefield at [facility] this coming Sunday01/11/18. Get appointment with grief counselor as soon as possible. Avoid sex, driving, lifting, heavy housework. Call your doctor immediately for: * Fever > 100.5 * Heavy vaginal bleeding ( >1 pad per hour) * Severe persistent headache * Shortness of breath * Reddened, hot, painful area to leg or breast * Drainage or odor from incision. * Keep incision clean and dry at all times and follow doctor's instructions regarding bathing/showering - Follow up plan Follow up: YA WAKEFIELD MD [Primary Care Provider] - 7 Days
== END 2018-01-05 18:38 | disposition home or self-care (01) | DRG 765 ==
LOC: TRG 12:45 → APU 12:51 → OB 19:50
PROVIDERS: ADMIT Obstetrics & Gynecology; ATTEND Obstetrics & Gynecology
PROC: 10D00Z1 Extraction of Products of Conception, Low, Open Approach (ICD-10-PCS; principal; 2018-01-02)
DX: O32.1XX1 Maternal care for breech presentation, fetus 1 (principal); O60.14X2 Preterm labor third trimester with preterm delivery third trimester, fetus 2; Z68.42 Body mass index [BMI] 45.0-49.9, adult; O13.4 Gestational [pregnancy-induced] hypertension without significant proteinuria, complicating childbirth; O36.4XX2 Maternal care for intrauterine death, fetus 2; O30.043 Twin pregnancy, dichorionic/diamniotic, third trimester; Z3A.34 34 weeks gestation of pregnancy; Z37.3 Twins, one liveborn and one stillborn; E66.01 Morbid (severe) obesity due to excess calories; Z71.3 Dietary counseling and surveillance; O36.5932 Maternal care for other known or suspected poor fetal growth, third trimester, fetus 2; O99.02 Anemia complicating childbirth; D64.9 Anemia, unspecified; O41 Other disorders of amniotic fluid and membranes
CPT/HCPCS: 36415; 76815; 82565; 83615; 84450; 84460; 84550; 85014; 85018; 85025; 85460; 86762; 86777; 86778; 86850; 86900; 86901; 87497; 87529; 88307; 90715; 99211; G0463; J0690; J1170; J1200; J1885; J2250; J2270; J2370; J2405; J2590; J2765; J7120